=== PATIENT | male | born 1975 | race Caucasian/White ===

== ENCOUNTER 2017-11-24 08:26 | Emergency (ER) | payer BC, SELFPAY ==
[2017-11-24] MEDS ORDERED: Lidocaine 1% (PF) 30 ML VIAL ONE (09:49)
== END 2017-11-24 10:12 | disposition home or self-care (01) ==
LOC: ERS 08:26
DX: L02.411 Cutaneous abscess of right axilla (principal); B20 Human immunodeficiency virus [HIV] disease; Z87.891 Personal history of nicotine dependence
CPT/HCPCS: 10060; J2001

== ENCOUNTER 2017-11-28 21:00 | Inpatient (IN) | payer SELFPAY ==
[2017-11-28] MEDS ORDERED: Lidocaine 1% w/Epinephrine 1:100K 20 ML VIAL ONE (21:48)
[2017-11-28 21:59] LABS: #Basophils 0.1 thou/uL (0.0-0.2); #Eosinphils 0.2 thou/uL (0.0-0.7); #Lymphocytes 2.2 thou/uL (1.20-3.40); #Monocytes 0.6 thou/uL (0.11-0.59); #Neutrophils 6.7 thou/uL (1.40-6.50); %Basophils 0.6 % (0.0-1.0); %Eosinophils 1.7 % (0.0-10.0); %Lymphocytes 22.3 % (21.0-51.0); %Monocytes 6.3 % (0.0-10.0); %Neutrophils 69.1 % (42.0-75.0); Hemoglobin 12.8 g/dL (14.0-18.0); Mean Corpuscular HGB CONC 33.2 g/dL (32.0-36.0); Mean Corpuscular Hemoglobin 30.2 pg (27.0-31.0); Mean Corpuscular Volume 90.9 fL (78.0-98.0); Mean Platelet Volume 6.4 fL (7.4-10.4); Platelet Count 350 thou/uL (130-400); RBC Distribution Width 12.9 % (11.5-14.5); Red Blood Cell (RBC) Count 4.23 mill/uL (4.70-6.10); White Blood Cell (WBC) Count 9.7 thou/uL (4.8-10.8)
[2017-11-28 22:18] LABS: ALT (SGPT) 14 U/L (8-55); AST (SGOT) 14 U/L (5-34); Alkaline Phosphatase 57 U/L (40-150); Anion Gap 13 mmol/L (10-20); BUN (Urea Nitrogen) 20 mg/dL (8.9-20.6); Bilirubin, Total 0.5 mg/dL (0.2-1.2); Calc. Creatinine Clearance 0 mL/min (70-130); Calcium 9.6 mg/dL (7.8-10.44); Carbon Dioxide 22 mmol/L (22-29); Chloride 105 mmol/L (98-107); Estimated GFR-MDRD 66; Globulin 3.4 g/dL (2.4-3.5); Glucose 109 mg/dL (70-105); Potassium 3.5 mmol/L (3.5-5.1); Protein, Total 7.4 g/dL (6.0-8.3); Sodium 136 mmol/L (136-145)
[2017-11-29] MEDS ORDERED: Piperacillin/Tazobactam 4.5 GM VIAL ONE (00:19)
[2017-11-29] MEDS: Sodium Chloride 0.9% 1,000 ML IV SCH ×3 (01:19→13:06)
[2017-11-29 01:48] VITALS: BMI 34.2
[2017-11-29] MEDS ORDERED: traMADol HCl 50 MG TAB PO PRN (05:43)
[2017-11-29] MEDS ORDERED: Ondansetron HCl/PF 4 MG in Sodium Chloride 0.9% 50 ML IVPB PRN (05:43)
[2017-11-29] MEDS ORDERED: Prevnar 13-Val Conj/PF 0.5 ML SYRINGE IM ONE (09:00)
[2017-11-29] MEDS: Acetaminophen 325 MG TAB PO PRN ×2 (10:08→19:10)
[2017-11-29] MEDS ORDERED: Vancomycin HCl 1 GM in Premix Bag 1 BAG IVPB SCH (12:45)
[2017-11-29] MEDS ORDERED: Bisacodyl 5 MG TAB PO PRN (12:47)
--- NOTE | 2017-11-29 13:16 | HP ---
CHIEF COMPLAINT: Infection. PRIMARY CARE PROVIDER: None. HISTORY OF PRESENT ILLNESS: Mr. Townsend is a pleasant 42-year-old gentleman who was seen at [facility] on 11/29/2017. Six days ago, he shaved his axillae. Next day, he was okay. The following day, his axilla puffed up on both sides. He came to the emergency room and was prescribed Bactrim. He started taking Bactrim at home. Yesterday evening, he noticed that the swelling was worse. He checked his temperature and found that it was 101.3 degrees Fahrenheit. He therefore presented to the emergency room. He describes pain in both axillae, worse on the right side, sharp, 8-9/10 at its worst, nonradiating, worse with movement, improved with rest, no other associated features. I should note that during his previous emergency room visit, he had an abscess that drained in the le ft axilla. Last night, he had abscess drained from the right axilla. REVIEW OF SYSTEMS: All other systems reviewed and found to be negative. PAST MEDICAL HISTORY: HIV infection, he reports that his medications were changed approximately 2.5- 3 months ago. He also has a history of deep vein thrombosis. PAST SURGICAL HISTORY: Probable carotid thrombectomy with stent placement on the left side. ALLERGIES: No known drug allergies. CURRENT MEDICATIONS: Bactrim-DS 1 tablet 2 times a day and Genvoya 1 tablet daily. SOCIAL HISTORY: The patient reports occasional marijuana use. He denies alcohol use. He reports sm oking 1 pack of cigarettes in a week. FAMILY HISTORY: Colon cancer in his mother. PHYSICAL EXAMINATION: GENERAL: Mr. Townsend is awake and alert, not in acute distress. He is obese, with a BMI of 34.2. VITAL SIGNS: Blood pressure is 92/55, pulse 85, respiratory rate 20, and oxygen saturation 96% on ro om air. Temperature is 99.4 degrees Fahrenheit. EYES: No scleral icterus. No conjunctival pallor. ENT: Moist mucosal membranes, no oropharyngeal erythema or exudates. NECK: Supple, nontender, trachea is midline. RESPIRATORY: Accessory muscles of breathing are not active. Chest wall movements are symmetric bila terally. LUNGS: Clear to auscultation without wheeze, rhonchi or crepitations. CARDIOVASCULAR: S1 and S2 are heard, regular. Peripheral pulses palpable. No carotid bruit, no per icardial rub. ABDOMEN: Soft, nontender, bowel sounds heard, no hepatomegaly, no splenomegaly. NEUROLOGIC: Cranial nerves II-XII intact. Deep tendon reflexes are 2+. MUSCULOSKELETAL: Power is 5/5 in all 4 extremities. SKIN: He has a dressing over the right axilla. Left axilla has tenderness of the skin along with pa lpable masses. LYMPHATIC: Probable axillary lymphadenopathy. PSYCHIATRIC: Normal mood, normal affect, patient is oriented to person, place, and time. LABORATORY DATA: Mr. Townsend's labs and investigations were reviewed. He has normal white count, norm ocytic anemia with hemoglobin 12.8, normal platelet count, unremarkable comprehensive metabolic profi le and normal lactic acid level. ASSESSMENT AND PLAN: Mr. Townsend is a pleasant 42-year-old gentleman who was seen at [facility] on 11/29/2017. His problem list includes: 1. Cellulitis: Mr. Townsend is presenting with cellulitis of both axillae along with abscess formation as well, status post incision and drainage. He will be admitted to the hospital for further managem ent. He has failed outpatient antibiotic therapy. We will start him on empiric antibiotics, vancomy jim and Zosyn and follow cultures. We will also consult ID Service for opinion and help with managem ent. 2. Human immunodeficiency virus infection: He has a history of HIV infection. We will continue his home medications. 3. Tobacco use: The patient has been counseled regarding tobacco cessation and marijuana cessation. Many thanks for allowing me to participate in your patient's care. Please feel free to contact me wi th any questions or concerns. LEVEL OF RISK: Moderate. LEVEL OF COMPLEXITY: Moderate.
[2017-11-29] MEDS: Piperacillin/Tazobactam 4.5 GM in Sodium Chloride 0.9% 100 ML IVPB SCH ×2 (13:23→21:27)
[2017-11-29] MEDS: Vancomycin HCl 1.75 GM in Sodium Chloride 0.9% 500 ML IVPB SCH ×2 (13:31→23:47)
[2017-11-29 15:16] LABS: Hep C IgG Ab Non-Reactive (NonReactive)
--- NOTE | 2017-11-29 18:05 | CON ---
DATE OF CONSULTATION: 11/29/2017 CHIEF COMPLAINT: Mr. Townsend admitted with inflammatory process, right and left axillary regions. HISTORY OF PRESENT ILLNESS: A 42-year-old known to us from previous consultation with a history of l ongstanding HIV infection, currently on Genvoya for the past 2 months, history of prior deep venous t hrombosis and Staphylococcal bacteremia a few years ago. He also has a history of skin abscesses whi ch are presumably secondary to Staphylococcus aureus. The possibility of hidradenitis had been consi dered, but the clinical presentation would not very typical of it in July. The patient now has been admitted with an exacerbation or new development of the right and left axillary inflammatory process. The left one is more severe one. This was associated with fever and has failed oral Bactrim in the home setting. Max temperature was 101.3. He has some other areas of nodular inflammatory change in the more proximal aspect of the right and left arms. No headaches. No sore throat, odynophagia, or dysphagia. No visual symptoms or back pain. No abdominal pain. He has intermittent loose stools w hich is chronic. No genitourinary symptoms. No joint symptoms. No neurological symptoms. 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 Apparently had a deep vein thrombosis with stenting and thrombectomy of the lef t side of his neck. SOCIAL HISTORY: Chronic smoking. No IV drug use. 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 PAST MEDICAL HISTORY: Colon cancer, CVA and myocardial infarction. ALLERGIES: None. MEDICATIONS: Genvoya, Bactrim. PHYSICAL EXAMINATION: VITAL SIGNS: T-max 99.4, blood pressure 105/67, pulse 100, respirations 20, O2 saturation 97%. GENERAL: Appears in no acute distress. SKIN: Shows areas of inflammatory change in the right and left axilla. Those are sort of a pustular follicular inflammatory lesions, the one the left is more obvious abscess/furuncle type of lesion, w hich is packed after debridement in the emergency room. Patient has hyperpigmented spots in the prox imal aspect of upper extremities bilaterally, which probably represent previous inflammatory processe s. Those extend beyond the area of the axilla. He has a few other nodular lesions, particularly on the right side, not as intense as the current ones. No lymphadenopathy. HEENT: Ocular movements conjugate. Oral cavity normal. NECK: Supple. LUNGS: Symmetric clear breath sounds. HEART: S1, S2, regular rate. No S3, S4. ABDOMEN: Soft, not distended or tender. No ascites. No bladder distention. EXTREMITIES: No joint inflammatory activity. No edema. Pulses 1+ in dorsalis pedis. Plantar respo nses are flexure. NEUROLOGIC: Cognitive function appears to be intact. EXTREMITIES: Moves extremities equally. LABORATORY DATA: White cell count 9.7, hemoglobin 12.8, platelets 350, total lymphocyte count 2.2 an d chemistry was not remarkable except for glucose 109. His last HIV viral load was 600,000 in July t his year. His last CD4 cell count here was 196. ASSESSMENT: 1. Longstanding human immunodeficiency virus infection with erratic antiretroviral therapy due to pe rsonal social issues now with more steady adherence to treatment at least for the past 2 months. 2. Recurring episodes of skin and soft tissue infection with folliculitis and furuncle. Possibility of hidradenitis had been considered. We have not yet completely ruled out this possibility. At thi s point, we will continue Genvoya and Bactrim 3 times a week suppressive therapy until we have the cu rrent CD4 cell count. If it is above 200, discontinue Bactrim and continue Genvoya alone. The patie nt has his own supplies and should continue taking from them while in the hospital. Regarding his sk in and soft tissue infections, we will wait for the cultures. If revealed Staphylococcus aureus or M RSA, then continue treatment as such may need further I&D or not depending on progress. If other typ es of bacteria isolated then the possibility of hidradenitis would have to be considered more strongl y. Continue monitoring blood cultures to verify that he was not bacteremic. Check hepatitis C, RPR.
[2017-11-29 22:15] LABS: Syphilis Antibody INDETERMINATE (Nonreactive); Syphilis Titer Non-Reactive (Negative)
[2017-11-30] MEDS: Sodium Chloride 0.9% 1,000 ML IV SCH ×2 (03:45→13:13)
[2017-11-30 05:27] LABS: #Eosinphils 0.3 thou/uL (0.0-0.7); #Lymphocytes 1.3 thou/uL (1.20-3.40); #Monocytes 0.2 thou/uL (0.11-0.59); #Neutrophils 4.7 thou/uL (1.40-6.50); %Basophils 0.1 % (0.0-1.0); %Eosinophils 4.3 % (0.0-10.0); %Monocytes 3.5 % (0.0-10.0); Hemoglobin 11.5 g/dL (14.0-18.0); Mean Corpuscular HGB CONC 33.3 g/dL (32.0-36.0); Mean Corpuscular Volume 92.9 fL (78.0-98.0); Mean Platelet Volume 6.6 fL (7.4-10.4); Platelet Count 278 thou/uL (130-400); RBC Distribution Width 12.8 % (11.5-14.5); Red Blood Cell (RBC) Count 3.71 mill/uL (4.70-6.10); White Blood Cell (WBC) Count 6.6 thou/uL (4.8-10.8)
[2017-11-30 05:38] LABS: Anion Gap 10 mmol/L (10-20); BUN (Urea Nitrogen) 9 mg/dL (8.9-20.6); Calc. Creatinine Clearance 173 mL/min (70-130); Carbon Dioxide 19 mmol/L (22-29); Chloride 108 mmol/L (98-107); Estimated GFR-MDRD 86; Glucose 116 mg/dL (70-105); Potassium 3.8 mmol/L (3.5-5.1); Sodium 133 mmol/L (136-145)
[2017-11-30] MEDS: Piperacillin/Tazobactam 4.5 GM in Sodium Chloride 0.9% 100 ML IVPB SCH ×3 (05:40→20:22)
[2017-11-30] MEDS: Enoxaparin Sodium 40 MG/0.4 ML SYRINGE SC SCH (08:05)
[2017-11-30] MEDS: GENVOYA PO SCH (08:06)
[2017-11-30] MEDS ORDERED: hydrALAZINE 20 MG/ML VIAL SLOW IVP PRN (08:24)
[2017-11-30] MEDS ORDERED: Chloraseptic Spray 180 ml Bottle PO PRN (08:24)
[2017-11-30] MEDS ORDERED: Famotidine 20 MG TAB PO PRN (08:24)
[2017-11-30] MEDS ORDERED: Calcium Carbonate 500 MG ChewTAB PO PRN (08:24)
[2017-11-30] MEDS ORDERED: Milk Of Magnesia 30 ML UDCUP PO PRN (08:24)
[2017-11-30] MEDS ORDERED: Ondansetron ODT 4 MG TAB PO PRN (08:24)
[2017-11-30] MEDS ORDERED: Temazepam 15 MG CAP PO PRN (08:24)
[2017-11-30] MEDS ORDERED: Eucerin (Mineral Oil/Petrolatum,White) 30 gm Jar TOP PRN (08:24)
[2017-11-30] MEDS ORDERED: Artificial Tears 18 DROP/0.9 ML EA EYE PRN (08:24)
[2017-11-30] MEDS ORDERED: Loperamide HCl 2 MG CAP PO PRN (08:24)
[2017-11-30] MEDS ORDERED: Sodium Chloride 0.65% Nasal 44 ML BOT EA NARE PRN (08:24)
[2017-11-30] MEDS ORDERED: Loratadine 10 MG TAB PO PRN (08:24)
[2017-11-30] MEDS ORDERED: [UNRECOGNIZED DRUG - OTHER] PO SCH (09:00)
[2017-11-30] MEDS: Saccharomyces boulardii 250 MG CAP PO SCH (09:46)
[2017-11-30] MEDS: HYDROcodone/Acetaminophen 5/325 mg Tablet PO PRN ×3 (09:46→18:22)
[2017-11-30] MEDS: Diabetic Tussin 200 MG/10 ML UDCUP PO PRN ×2 (09:46→17:10)
[2017-11-30] MEDS: Vancomycin HCl 1.75 GM in Sodium Chloride 0.9% 500 ML IVPB SCH (13:14)
--- NOTE | 2017-11-30 13:39 | PDOC.PN ---
- Subjective Encounter Start Date: 11/30/17 Encounter Start Time: 07:45 Patient seen and examined. No overnight events pt has severe pain in both axilla, more on left - Objective MAR Reviewed: Yes Vital Signs & Weight: Vital Signs (12 hours) Temp Pulse Resp BP Pulse Ox 11/30/17 08:00 95 11/30/17 07:48 98.1 F 62 18 120/76 95 11/30/17 04:36 98.3 F 63 16 113/69 96 Weight Weight 266 lb 3 oz I&O: 11/29/17 11/30/17 12/01/17 06:59 06:59 06:59 Intake Total 711 3765.2 400 Balance 711 3765.2 400 Result Diagrams: 11/30/17 04:33 11/30/17 04:33 Phys Exam - Physical Examination Constitutional: NAD HEENT: PERRLA, moist MMs, sclera anicteric Neck: no JVD, supple Respiratory: no wheezing, no rales, no rhonchi Cardiovascular: RRR, no significant murmur, no rub Gastrointestinal: soft, non-tender, no distention, positive bowel sounds obesity+ Musculoskeletal: no edema, pulses present both axilla abscess with dressing Neurological: non-focal, normal sensation, moves all 4 limbs Psychiatric: normal affect, A&O x 3 Skin: no rash, normal turgor Dx/Plan (1) Axillary abscess Code(s): L02.419 - CUTANEOUS ABSCESS OF LIMB, UNSPECIFIED Status: Acute (2) Failure of outpatient treatment Code(s): Z78.9 - OTHER SPECIFIED HEALTH STATUS Status: Acute (3) HIV (human immunodeficiency virus infection) Status: Chronic (4) Obesity (BMI 30-39.9) Code(s): E66.9 - OBESITY, UNSPECIFIED Status: Chronic (5) Tobacco abuse Code(s): Z72.0 - TOBACCO USE Status: Chronic - Plan cont current plan of care, continue antibiotics * ID following * continue vancomycin and zosyn for now * follow on culture * increase morphin for pain and toradol for pain control * medication reviewed as below * symptomatic treatment * wound care. Review of Systems - Review of Systems ENT: negative: Ear Pain, Ear Discharge, Nose Pain, Nose Discharge, Nose Congestion, Mouth Pain, Mouth Swelling, Throat Pain, Throat Swelling, Other Respiratory: negative: Cough, Dry, Shortness of Breath, Hemoptysis, SOB with Excertion, Pleuritic Pain, Sputum, Wheezing Cardiovascular: negative: chest pain, palpitations, orthopnea, paroxysmal nocturnal dyspnea, edema, light headedness, other Gastrointestinal: negative: Nausea, Vomiting, Abdominal Pain, Diarrhea, Constipation, Melena, Hematochezia, Other Genitourinary: negative: Dysuria, Frequency, Incontinence, Hematuria, Retention , Other Musculoskeletal: Arm Pain. negative: Neck Pain, Shoulder Pain, Back Pain, Hand Pain, Leg Pain, Foot Pain, Other Skin: negative: Rash, Lesions, Yan, Bruising, Other - Medications/Allergies Allergies/Adverse Reactions: Allergies Allergy/AdvReac Type Severity Reaction Status Date / Time No Known Allergies Allergy Unverified 07/24/15 17:30 Medications: Current Medications Acetaminophen (Tylenol) 650 mg PO Q6H PRN PRN Reason: Pain Last Admin: 11/29/17 19:10 Dose: 650 mg Hydrocodone Bitart/Acetaminophen ([place] 5/325) 1 tab PO Q4H PRN PRN Reason: Moderate Pain (4-6) Last Admin: 11/30/17 09:46 Dose: 1 tab Artificial Tears (Tears Naturale) 0 drop EA EYE PRN PRN PRN Reason: Dry Eyes Bisacodyl (Dulcolax) 10 mg PO DAILYPRN PRN PRN Reason: Constipation Calcium Carbonate (Tums) 1,000 mg PO Q4H PRN PRN Reason: Heartburn or Indigestion Enoxaparin Sodium (Lovenox) 40 mg SC 0900 [place] Last Admin: 11/30/17 08:05 Dose: 40 mg Famotidine (Pepcid) 20 mg PO BIDPRN PRN PRN Reason: Heartburn or Indigestion Guaifenesin (Robitussin Sf) 200 mg PO Q4H PRN PRN Reason: Cough Last Admin: 11/30/17 09:46 Dose: 200 mg Hydralazine HCl (Apresoline) 10 mg SLOW IVP Q4H PRN PRN Reason: Systolic BP > 180 Ondansetron HCl 4 mg/ Sodium (Chloride) 52 mls @ 200 mls/hr IVPB Q6H PRN PRN Reason: Nausea Piperacillin Sod/Tazobactam (Sod 4.5 gm/ Sodium Chloride) 100 mls @ 200 mls/hr IVPB Q8HR [facility] Last Admin: 11/30/17 05:40 Dose: 100 mls Sodium Chloride (Normal Saline 0.9%) 1,000 mls @ 70 mls/hr IV .[id number] [facility] Last Admin: 11/30/17 13:13 Dose: 1,000 mls Vancomycin HCl 1.75 gm/ Sodium (Chloride) 500 mls @ 250 mls/hr IVPB 0100,1300 [facility] Last Admin: 11/30/17 13:14 Dose: 500 mls Loperamide HCl (Imodium) 2 mg PO PRN PRN PRN Reason: Diarrhea/Loose Stools Loratadine (Claritin) 10 mg PO DAILYPRN PRN PRN Reason: Sinus Symptoms Magnesium Hydroxide (Milk Of Magnesium) 30 ml PO DAILYPRN PRN PRN Reason: Constipation Mineral Oil/White Petrolatum (Eucerin Cream) 0 gm TOP BIDPRN PRN PRN Reason: Dry Skin Miscellaneous Medication (Pharmacy To Dose) 0 each IVPB ASDIR PRN PRN Reason: Pharmacy to Dose VANC; RENALLY Morphine Sulfate (Morphine) 2 mg SLOW IVP Q2H PRN PRN Reason: Severe Pain (7-10) Last Admin: 11/30/17 13:11 Dose: 2 mg Ondansetron HCl (Zofran Odt) 4 mg PO Q6H PRN PRN Reason: Nausea/Vomiting Patient's Home (Medication - Genvoya) 1 each PO DAILY [facility] Last Admin: 11/30/17 08:06 Dose: 1 each Phenol (Chloraseptic [place] 180 Ml Bot) 0 ml PO PRN PRN PRN Reason: Sore Throat Saccharomyces Boulardii (Florastor) 250 mg PO DAILY [facility] Last Admin: 11/30/17 09:46 Dose: 250 mg Sodium Chloride (Flush - Normal Saline) 10 ml IVF PRN PRN PRN Reason: Saline Flush Sodium Chloride ([place] Nasal [place] 0.65%) 0 ml EA NARE QIDPRN PRN PRN Reason: Nasal Congestion Temazepam (Restoril) 15 mg PO HSPRN PRN PRN Reason: Insomnia
[2017-11-30] MEDS: Ketorolac Tromethamine 30 MG/ML VIAL IVP PRN (20:22)
[2017-12-01 00:20] LABS: Vancomycin, Trough 12.1 ug/mL
[2017-12-01] MEDS: HYDROcodone/Acetaminophen 5/325 mg Tablet PO PRN ×3 (00:20→18:18)
[2017-12-01] MEDS: Vancomycin HCl 1.75 GM in Sodium Chloride 0.9% 500 ML IVPB SCH (00:21)
[2017-12-01] MEDS: Piperacillin/Tazobactam 4.5 GM in Sodium Chloride 0.9% 100 ML IVPB SCH ×3 (05:45→23:57)
[2017-12-01] MEDS: Ketorolac Tromethamine 30 MG/ML VIAL IVP PRN ×2 (05:45→14:50)
[2017-12-01] MEDS: GENVOYA PO SCH (09:48)
[2017-12-01] MEDS: Enoxaparin Sodium 40 MG/0.4 ML SYRINGE SC SCH (09:49)
[2017-12-01] MEDS: Saccharomyces boulardii 250 MG CAP PO SCH (09:49)
[2017-12-01] MEDS: Vancomycin HCl 1.5 GM in Sodium Chloride 0.9% 250 ML 300 ML IVPB SCH ×2 (10:17→18:19)
--- NOTE | 2017-12-01 11:06 | PDOC.PN ---
- Subjective Encounter Start Date: 12/01/17 Encounter Start Time: 09:30 pt has no fever, but he still has more pain on left axilla - Objective MAR Reviewed: Yes Vital Signs & Weight: Vital Signs (12 hours) Temp Pulse Resp BP Pulse Ox 12/01/17 08:00 97 12/01/17 07:29 97.7 F 63 20 108/55 L 97 Weight Weight 266 lb 3 oz I&O: 11/30/17 12/01/17 12/02/17 06:59 06:59 06:59 Intake Total 3765.2 1999 Balance 3765.2 1999 Result Diagrams: 11/30/17 04:33 11/30/17 04:33 Phys Exam - Physical Examination Constitutional: NAD HEENT: PERRLA, moist MMs, sclera anicteric Neck: no JVD, supple Respiratory: no wheezing, no rales, no rhonchi Cardiovascular: RRR, no significant murmur, no rub Gastrointestinal: soft, non-tender, no distention, positive bowel sounds Musculoskeletal: no edema, pulses present both axilla has indurated lesion Neurological: non-focal, normal sensation, moves all 4 limbs Psychiatric: normal affect, A&O x 3 Skin: no rash, normal turgor Dx/Plan (1) Axillary abscess Code(s): L02.419 - CUTANEOUS ABSCESS OF LIMB, UNSPECIFIED Status: Acute (2) Failure of outpatient treatment Code(s): Z78.9 - OTHER SPECIFIED HEALTH STATUS Status: Acute (3) HIV (human immunodeficiency virus infection) Status: Chronic (4) Obesity (BMI 30-39.9) Code(s): E66.9 - OBESITY, UNSPECIFIED Status: Chronic (5) Tobacco abuse Code(s): Z72.0 - TOBACCO USE Status: Chronic - Plan cont current plan of care, continue antibiotics * currently on vancomycin and zosyn * wound care * pain control with narcotics * will ask dr haile if any need for general surgery for more I & D * medication reviewed as below * symptomatic treatment. Review of Systems - Review of Systems Eyes: negative: Pain, Vision Change, Conjunctivae Inflammation, Eyelid Inflammation, Redness, Other ENT: negative: Ear Pain, Ear Discharge, Nose Pain, Nose Discharge, Nose Congestion, Mouth Pain, Mouth Swelling, Throat Pain, Throat Swelling, Other Respiratory: negative: Cough, Dry, Shortness of Breath, Hemoptysis, SOB with Excertion, Pleuritic Pain, Sputum, Wheezing Cardiovascular: negative: chest pain, palpitations, orthopnea, paroxysmal nocturnal dyspnea, edema, light headedness, other Gastrointestinal: negative: Nausea, Vomiting, Abdominal Pain, Diarrhea, Constipation, Melena, Hematochezia, Other Genitourinary: negative: Dysuria, Frequency, Incontinence, Hematuria, Retention , Other Musculoskeletal: Arm Pain. negative: Neck Pain, Shoulder Pain, Back Pain, Hand Pain, Leg Pain, Foot Pain, Other - Medications/Allergies Allergies/Adverse Reactions: Allergies Allergy/AdvReac Type Severity Reaction Status Date / Time No Known Allergies Allergy Unverified 07/24/15 17:30 Medications: Current Medications Acetaminophen (Tylenol) 650 mg PO Q6H PRN PRN Reason: Pain Last Admin: 11/29/17 19:10 Dose: 650 mg Hydrocodone Bitart/Acetaminophen ([place] 5/325) 1 tab PO Q4H PRN PRN Reason: Moderate Pain (4-6) Last Admin: 12/01/17 09:49 Dose: 1 tab Artificial Tears (Tears Naturale) 0 drop EA EYE PRN PRN PRN Reason: Dry Eyes Bisacodyl (Dulcolax) 10 mg PO DAILYPRN PRN PRN Reason: Constipation Calcium Carbonate (Tums) 1,000 mg PO Q4H PRN PRN Reason: Heartburn or Indigestion Enoxaparin Sodium (Lovenox) 40 mg SC 0900 [place] Last Admin: 12/01/17 09:49 Dose: 40 mg Famotidine (Pepcid) 20 mg PO BIDPRN PRN PRN Reason: Heartburn or Indigestion Guaifenesin (Robitussin Sf) 200 mg PO Q4H PRN PRN Reason: Cough Last Admin: 11/30/17 17:10 Dose: 200 mg Hydralazine HCl (Apresoline) 10 mg SLOW IVP Q4H PRN PRN Reason: Systolic BP > 180 Ondansetron HCl 4 mg/ Sodium (Chloride) 52 mls @ 200 mls/hr IVPB Q6H PRN PRN Reason: Nausea Piperacillin Sod/Tazobactam (Sod 4.5 gm/ Sodium Chloride) 100 mls @ 200 mls/hr IVPB Q8HR [place] Last Admin: 12/01/17 05:45 Dose: 100 mls Sodium Chloride (Normal Saline 0.9%) 1,000 mls @ 70 mls/hr IV .[id number] [facility] Last Admin: 11/30/17 13:13 Dose: 1,000 mls Vancomycin HCl 1.5 gm/ Sodium (Chloride) 300 mls @ 200 mls/hr IVPB 0100,0900, 1700 [facility] Last Admin: 12/01/17 10:17 Dose: 300 mls Ketorolac Tromethamine (Toradol) 15 mg IVP Q6H PRN PRN Reason: Pain Stop: 12/05/17 13:40 Last Admin: 12/01/17 05:45 Dose: 15 mg Loperamide HCl (Imodium) 2 mg PO PRN PRN PRN Reason: Diarrhea/Loose Stools Loratadine (Claritin) 10 mg PO DAILYPRN PRN PRN Reason: Sinus Symptoms Magnesium Hydroxide (Milk Of Magnesium) 30 ml PO DAILYPRN PRN PRN Reason: Constipation Mineral Oil/White Petrolatum (Eucerin Cream) 0 gm TOP BIDPRN PRN PRN Reason: Dry Skin Miscellaneous Medication (Pharmacy To Dose) 0 each IVPB ASDIR PRN PRN Reason: Pharmacy to Dose VANC; RENALLY Morphine Sulfate (Morphine) 4 mg SLOW IVP Q2H PRN PRN Reason: Severe Pain (7-10) Last Admin: 11/30/17 17:08 Dose: 4 mg Ondansetron HCl (Zofran Odt) 4 mg PO Q6H PRN PRN Reason: Nausea/Vomiting Patient's Home (Medication - Genvoya) 1 each PO DAILY [facility] Last Admin: 12/01/17 09:48 Dose: 1 each Phenol (Chloraseptic [place] 180 Ml Bot) 0 ml PO PRN PRN PRN Reason: Sore Throat Saccharomyces Boulardii (Florastor) 250 mg PO DAILY [facility] Last Admin: 12/01/17 09:49 Dose: 250 mg Sodium Chloride (Flush - Normal Saline) 10 ml IVF PRN PRN PRN Reason: Saline Flush Sodium Chloride ([place] Nasal [place] 0.65%) 0 ml EA NARE QIDPRN PRN PRN Reason: Nasal Congestion Temazepam (Restoril) 15 mg PO HSPRN PRN PRN Reason: Insomnia
[2017-12-01] MEDS: Sodium Chloride 0.9% 1,000 ML IV SCH (14:54)
[2017-12-01 15:17] LABS: LOG10 HIV-1 RNA 1.845 (.)
[2017-12-01] MEDS: Diabetic Tussin 200 MG/10 ML UDCUP PO PRN (18:18)
[2017-12-02] MEDS: Vancomycin HCl 1.5 GM in Sodium Chloride 0.9% 250 ML 300 ML IVPB SCH (01:11)
[2017-12-02] MEDS: Piperacillin/Tazobactam 4.5 GM in Sodium Chloride 0.9% 100 ML IVPB SCH (05:29)
[2017-12-02] MEDS ORDERED: Levofloxacin 500 mg/D5W 100 ml Premix Bag ONE (06:30)
--- NOTE | 2017-12-02 08:10 | PRG ---
DATE OF SERVICE: 12/01/2017 Mr. Townsend is still with quite a bit of pain in the left axillary region, not as much on the right. No respiratory symptoms, no abdominal pain or diarrhea. PHYSICAL EXAMINATION: VITAL SIGNS: T-max 98.2, blood pressure 140/76, pulse 67, respirations 18, O2 sat 94-97%. SKIN: Left-sided abscess still quite prominent with packing and still quite a bit of erythema surrounding these areas. Multiple areas of nodular inflammatory change in the left axillary region. The ones on the right are still there, but not as inflamed. LUNGS: Lungs are clear. HEART: S1, S2, regular rate. ABDOMEN: Soft, not distended or tender. No ascites. No bladder distention. NEURO: Nonfocal. LABORATORY DATA: White cell count 6.6, hemoglobin 11.5, platelets 278. Sodium 133, creatinine 0.97. HIV viral load was 70. The CD4 cell count IS still pending. The culture showed MRSA and E. coli. The E. coli has a broad susceptibility, except augmentin and piperacillin and Bactrim. It is susceptible to quinolones. ASSESSMENT AND DISCUSSION: Longstanding HIV infection with erratic adherence to antiretroviral therapy due to social issues, now with improvement in the appearance with development of inflammatory process in the axillary region. This still could represent hidradenitis associated versus inflammatory process. We will switch him to oral Cipro plus doxycycline and discontinue IV antimicrobial therapy. He may need a repeat I&D of the site. He may benefit from the Humira if hidradenitis is confirmed, which is not yet at this point in time, but I would have to wait for his CD4 cell count to improve before starting Humira since it is immunosuppressive medication. MTDD
[2017-12-02] MEDS: Saccharomyces boulardii 250 MG CAP PO SCH (08:22)
[2017-12-02] MEDS: Enoxaparin Sodium 40 MG/0.4 ML SYRINGE SC SCH (08:22)
[2017-12-02] MEDS: GENVOYA PO SCH (08:23)
[2017-12-02] MEDS: Ketorolac Tromethamine 30 MG/ML VIAL IVP PRN (08:26)
[2017-12-02] MEDS: Doxycycline 100 MG CAP PO SCH ×2 (09:49→19:58)
--- NOTE | 2017-12-02 11:47 | PDOC.PN ---
- Subjective Encounter Start Date: 12/02/17 Encounter Start Time: 09:00 Patient seen and examined. No new complaints. No overnight events - Objective MAR Reviewed: Yes Vital Signs & Weight: Vital Signs (12 hours) Temp Pulse Resp BP Pulse Ox 12/02/17 08:00 97 12/02/17 07:40 97.8 F 67 18 147/93 H 97 Weight Weight 266 lb 3 oz I&O: 12/01/17 12/02/17 12/03/17 06:59 06:59 06:59 Intake Total 1999 1005 Output Total 900 Balance 1999 105 Result Diagrams: 11/30/17 04:33 11/30/17 04:33 Phys Exam - Physical Examination Constitutional: NAD HEENT: PERRLA, moist MMs, sclera anicteric Neck: no JVD, supple Respiratory: no wheezing, no rales, no rhonchi Cardiovascular: RRR, no significant murmur, no rub Gastrointestinal: soft, non-tender, no distention, positive bowel sounds Musculoskeletal: no edema, pulses present axillary hideredenitis, multiple abscess Neurological: non-focal, normal sensation, moves all 4 limbs Psychiatric: normal affect, A&O x 3 Skin: no rash, normal turgor Dx/Plan (1) Axillary abscess Code(s): L02.419 - CUTANEOUS ABSCESS OF LIMB, UNSPECIFIED Status: Acute (2) Failure of outpatient treatment Code(s): Z78.9 - OTHER SPECIFIED HEALTH STATUS Status: Acute (3) HIV (human immunodeficiency virus infection) Status: Chronic (4) Obesity (BMI 30-39.9) Code(s): E66.9 - OBESITY, UNSPECIFIED Status: Chronic (5) Tobacco abuse Code(s): Z72.0 - TOBACCO USE Status: Chronic - Plan cont current plan of care, continue antibiotics * antibiotics changed to oral cipro and doxy * wound care * medication reviewed as below * symptomatic treatment * will consult general surgery for evaluation for need for I & D * await cd4 count result * pain controlled. Review of Systems - Review of Systems ENT: negative: Ear Pain, Ear Discharge, Nose Pain, Nose Discharge, Nose Congestion, Mouth Pain, Mouth Swelling, Throat Pain, Throat Swelling, Other Respiratory: negative: Cough, Dry, Shortness of Breath, Hemoptysis, SOB with Excertion, Pleuritic Pain, Sputum, Wheezing Cardiovascular: negative: chest pain, palpitations, orthopnea, paroxysmal nocturnal dyspnea, edema, light headedness, other Gastrointestinal: negative: Nausea, Vomiting, Abdominal Pain, Diarrhea, Constipation, Melena, Hematochezia, Other Genitourinary: negative: Dysuria, Frequency, Incontinence, Hematuria, Retention , Other Musculoskeletal: negative: Neck Pain, Shoulder Pain, Arm Pain, Back Pain, Hand Pain, Leg Pain, Foot Pain, Other Skin: negative: Rash, Lesions, Yan, Bruising, Other - Medications/Allergies Allergies/Adverse Reactions: Allergies Allergy/AdvReac Type Severity Reaction Status Date / Time No Known Allergies Allergy Unverified 07/24/15 17:30 Medications: Current Medications Acetaminophen (Tylenol) 650 mg PO Q6H PRN PRN Reason: Pain Last Admin: 11/29/17 19:10 Dose: 650 mg Hydrocodone Bitart/Acetaminophen ([place] 5/325) 1 tab PO Q4H PRN PRN Reason: Moderate Pain (4-6) Last Admin: 12/01/17 18:18 Dose: 1 tab Artificial Tears (Tears Naturale) 0 drop EA EYE PRN PRN PRN Reason: Dry Eyes Bisacodyl (Dulcolax) 10 mg PO DAILYPRN PRN PRN Reason: Constipation Calcium Carbonate (Tums) 1,000 mg PO Q4H PRN PRN Reason: Heartburn or Indigestion Ciprofloxacin (Cipro) 500 mg PO BID@0600,2000 [facility] Doxycycline Hyclate (Vibramycin) 100 mg PO BID [facility] Last Admin: 12/02/17 09:49 Dose: 100 mg Enoxaparin Sodium (Lovenox) 40 mg SC 0900 [facility] Last Admin: 12/02/17 08:22 Dose: 40 mg Famotidine (Pepcid) 20 mg PO BIDPRN PRN PRN Reason: Heartburn or Indigestion Guaifenesin (Robitussin Sf) 200 mg PO Q4H PRN PRN Reason: Cough Last Admin: 12/01/17 18:18 Dose: 200 mg Hydralazine HCl (Apresoline) 10 mg SLOW IVP Q4H PRN PRN Reason: Systolic BP > 180 Ondansetron HCl 4 mg/ Sodium (Chloride) 52 mls @ 200 mls/hr IVPB Q6H PRN PRN Reason: Nausea Sodium Chloride (Normal Saline 0.9%) 1,000 mls @ 70 mls/hr IV .[id number] [facility] Last Admin: 12/02/17 00:00 Dose: 1,000 mls Ketorolac Tromethamine (Toradol) 15 mg IVP Q6H PRN PRN Reason: Pain Stop: 12/05/17 13:40 Last Admin: 12/02/17 08:26 Dose: 15 mg Loperamide HCl (Imodium) 2 mg PO PRN PRN PRN Reason: Diarrhea/Loose Stools Loratadine (Claritin) 10 mg PO DAILYPRN PRN PRN Reason: Sinus Symptoms Magnesium Hydroxide (Milk Of Magnesium) 30 ml PO DAILYPRN PRN PRN Reason: Constipation Mineral Oil/White Petrolatum (Eucerin Cream) 0 gm TOP BIDPRN PRN PRN Reason: Dry Skin Morphine Sulfate (Morphine) 4 mg SLOW IVP Q2H PRN PRN Reason: Severe Pain (7-10) Last Admin: 12/02/17 11:20 Dose: 4 mg Ondansetron HCl (Zofran Odt) 4 mg PO Q6H PRN PRN Reason: Nausea/Vomiting Patient's Home (Medication - Genvoya) 1 each PO DAILY [facility] Last Admin: 12/02/17 08:23 Dose: 1 each Phenol (Chloraseptic [place] 180 Ml Bot) 0 ml PO PRN PRN PRN Reason: Sore Throat Saccharomyces Boulardii (Florastor) 250 mg PO DAILY [facility] Last Admin: 12/02/17 08:22 Dose: 250 mg Sodium Chloride (Flush - Normal Saline) 10 ml IVF PRN PRN PRN Reason: Saline Flush Sodium Chloride ([place] Nasal [place] 0.65%) 0 ml EA NARE QIDPRN PRN PRN Reason: Nasal Congestion Temazepam (Restoril) 15 mg PO HSPRN PRN PRN Reason: Insomnia
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
[2017-12-02] MEDS: HYDROcodone/Acetaminophen 5/325 mg Tablet PO PRN ×2 (14:54→19:58)
[2017-12-02] MEDS: Sodium Chloride 0.9% 1,000 ML IV SCH ×3 (15:04→20:03)
[2017-12-02] MEDS: Cipro 250 MG TAB PO SCH (21:07)
[2017-12-03 00:47] LABS: Vancomycin, Trough 5.6 ug/mL
[2017-12-03] MEDS: Cipro 250 MG TAB PO SCH ×2 (05:33→20:02)
[2017-12-03] MEDS: Sodium Chloride 0.9% 1,000 ML IV SCH (05:37)
[2017-12-03] MEDS: Doxycycline 100 MG CAP PO SCH ×2 (07:59→20:02)
[2017-12-03] MEDS: GENVOYA PO SCH (07:59)
[2017-12-03] MEDS: Saccharomyces boulardii 250 MG CAP PO SCH (07:59)
[2017-12-03] MEDS: Enoxaparin Sodium 40 MG/0.4 ML SYRINGE SC SCH (08:02)
[2017-12-03] MEDS ORDERED: PROPOFOL 200 MG/20 ML VIAL ONE (08:29)
[2017-12-03] MEDS ORDERED: Lidocaine 1% PF 5 ML VIAL ONE ×2 (08:29)
[2017-12-03] MEDS ORDERED: Ondansetron HCl/PF 4 MG/2 ML Vial ONE (08:29)
--- NOTE | 2017-12-03 10:56 | PDOC.PN ---
- Subjective Encounter Start Date: 12/03/17 Encounter Start Time: 08:15 Patient seen and examined. No new complaints. No overnight events - Objective MAR Reviewed: Yes Vital Signs & Weight: Vital Signs (12 hours) Temp Pulse Resp BP Pulse Ox 12/03/17 08:00 99 12/03/17 07:41 97.7 F 69 18 140/88 99 Weight Weight 266 lb 3 oz I&O: 12/02/17 12/03/17 12/04/17 06:59 06:59 06:59 Intake Total 1005 1774 Output Total 900 Balance 105 1774 Result Diagrams: 11/30/17 04:33 11/30/17 04:33 Phys Exam - Physical Examination Constitutional: NAD HEENT: PERRLA, moist MMs, sclera anicteric Neck: no JVD, supple Respiratory: no wheezing, no rales, no rhonchi Cardiovascular: RRR, no significant murmur, no rub Gastrointestinal: soft, non-tender, no distention, positive bowel sounds Musculoskeletal: no edema, pulses present axillary abscess with dressing Neurological: non-focal, normal sensation, moves all 4 limbs Psychiatric: normal affect, A&O x 3 Skin: no rash, normal turgor Dx/Plan (1) Axillary abscess Code(s): L02.419 - CUTANEOUS ABSCESS OF LIMB, UNSPECIFIED Status: Acute (2) Failure of outpatient treatment Code(s): Z78.9 - OTHER SPECIFIED HEALTH STATUS Status: Acute (3) HIV (human immunodeficiency virus infection) Status: Chronic (4) Obesity (BMI 30-39.9) Code(s): E66.9 - OBESITY, UNSPECIFIED Status: Chronic (5) Tobacco abuse Code(s): Z72.0 - TOBACCO USE Status: Chronic - Plan cont current plan of care, continue antibiotics * continue cipro and doxy * today surgical I & D * wound care * medication reviewed as below * symptomatic treatment. * DC IVF * pain controlled Review of Systems - Review of Systems ENT: negative: Ear Pain, Ear Discharge, Nose Pain, Nose Discharge, Nose Congestion, Mouth Pain, Mouth Swelling, Throat Pain, Throat Swelling, Other Respiratory: negative: Cough, Dry, Shortness of Breath, Hemoptysis, SOB with Excertion, Pleuritic Pain, Sputum, Wheezing Cardiovascular: negative: chest pain, palpitations, orthopnea, paroxysmal nocturnal dyspnea, edema, light headedness, other Gastrointestinal: negative: Nausea, Vomiting, Abdominal Pain, Diarrhea, Constipation, Melena, Hematochezia, Other Genitourinary: negative: Dysuria, Frequency, Incontinence, Hematuria, Retention , Other Musculoskeletal: negative: Neck Pain, Shoulder Pain, Arm Pain, Back Pain, Hand Pain, Leg Pain, Foot Pain, Other - Medications/Allergies Allergies/Adverse Reactions: Allergies Allergy/AdvReac Type Severity Reaction Status Date / Time No Known Allergies Allergy Unverified 07/24/15 17:30 Medications: Current Medications Acetaminophen (Tylenol) 650 mg PO Q6H PRN PRN Reason: Pain Last Admin: 11/29/17 19:10 Dose: 650 mg Hydrocodone Bitart/Acetaminophen ([place] 5/325) 1 tab PO Q4H PRN PRN Reason: Moderate Pain (4-6) Last Admin: 12/02/17 19:58 Dose: 1 tab Artificial Tears (Tears Naturale) 0 drop EA EYE PRN PRN PRN Reason: Dry Eyes Bisacodyl (Dulcolax) 10 mg PO DAILYPRN PRN PRN Reason: Constipation Calcium Carbonate (Tums) 1,000 mg PO Q4H PRN PRN Reason: Heartburn or Indigestion Ciprofloxacin (Cipro) 500 mg PO BID@0600,2000 [facility] Last Admin: 12/03/17 05:33 Dose: 500 mg Doxycycline Hyclate (Vibramycin) 100 mg PO BID [facility] Last Admin: 12/03/17 07:59 Dose: 100 mg Enoxaparin Sodium (Lovenox) 40 mg SC 0900 [facility] Last Admin: 12/03/17 08:02 Dose: Not Given Famotidine (Pepcid) 20 mg PO BIDPRN PRN PRN Reason: Heartburn or Indigestion Guaifenesin (Robitussin Sf) 200 mg PO Q4H PRN PRN Reason: Cough Last Admin: 12/01/17 18:18 Dose: 200 mg Hydralazine HCl (Apresoline) 10 mg SLOW IVP Q4H PRN PRN Reason: Systolic BP > 180 Ondansetron HCl 4 mg/ Sodium (Chloride) 52 mls @ 200 mls/hr IVPB Q6H PRN PRN Reason: Nausea Sodium Chloride (Normal Saline 0.9%) 1,000 mls @ 70 mls/hr IV .[id number] [facility] Last Admin: 12/03/17 05:37 Dose: 1,000 mls Ketorolac Tromethamine (Toradol) 15 mg IVP Q6H PRN PRN Reason: Pain Stop: 12/05/17 13:40 Last Admin: 12/02/17 08:26 Dose: 15 mg Loperamide HCl (Imodium) 2 mg PO PRN PRN PRN Reason: Diarrhea/Loose Stools Loratadine (Claritin) 10 mg PO DAILYPRN PRN PRN Reason: Sinus Symptoms Magnesium Hydroxide (Milk Of Magnesium) 30 ml PO DAILYPRN PRN PRN Reason: Constipation Mineral Oil/White Petrolatum (Eucerin Cream) 0 gm TOP BIDPRN PRN PRN Reason: Dry Skin Morphine Sulfate (Morphine) 4 mg SLOW IVP Q2H PRN PRN Reason: Severe Pain (7-10) Last Admin: 12/02/17 21:07 Dose: 4 mg Ondansetron HCl (Zofran Odt) 4 mg PO Q6H PRN PRN Reason: Nausea/Vomiting Patient's Home (Medication - Genvoya) 1 each PO DAILY [facility] Last Admin: 12/03/17 07:59 Dose: 1 each Phenol (Chloraseptic [place] 180 Ml Bot) 0 ml PO PRN PRN PRN Reason: Sore Throat Saccharomyces Boulardii (Florastor) 250 mg PO DAILY [facility] Last Admin: 12/03/17 07:59 Dose: 250 mg Sodium Chloride (Flush - Normal Saline) 10 ml IVF PRN PRN PRN Reason: Saline Flush Sodium Chloride ([place] Nasal [place] 0.65%) 0 ml EA NARE QIDPRN PRN PRN Reason: Nasal Congestion Temazepam (Restoril) 15 mg PO HSPRN PRN PRN Reason: Insomnia
[2017-12-03] MEDS ORDERED: Bacitracin Zinc Ointment 30 gm TUBE ONE (13:36)
[2017-12-03] MEDS ORDERED: Fentanyl 100 MCG/2 ML VIAL ONE ×2 (13:57→14:56)
[2017-12-03] MEDS ORDERED: Ibuprofen 600 MG TAB PO PRN (14:30)
[2017-12-03] MEDS ORDERED: Acetaminophen 500 MG TAB PO PRN (14:30)
[2017-12-03] MEDS ORDERED: traMADol HCl 50 MG TAB PO PRN ×2 (14:30)
[2017-12-03] MEDS ORDERED: Promethazine HCl 25 MG/ML VIAL SLOW IVP PRN (14:53)
[2017-12-03] MEDS ORDERED: Promethazine HCl 25 MG/ML VIAL IM PRN (14:53)
[2017-12-03] MEDS ORDERED: Ondansetron HCl/PF 4 MG/2 ML Vial IVP PRN (14:53)
[2017-12-03] MEDS ORDERED: Bupivacaine HCl 0.5%/Epinephrine 1:200,000/PF 30 ml Vial ONE (16:06)
[2017-12-03] MEDS ORDERED: Lidocaine 2% PF Inj 2 ML VIAL ONE (16:06)
--- NOTE | 2017-12-03 18:17 | PRG ---
DATE OF SERVICE: 12/03/2017 SUBJECTIVE: Mr. Townsend is status post further I&D of the left axilla. He has moderate pain. No resp iratory symptoms. No abdominal pain, diarrhea, no genitourinary symptoms. PHYSICAL EXAMINATION: VITAL SIGNS: T-max is 98.4 and his other vital signs are normal except for slight elevation in systo lic blood pressure. The left axilla has dressing, seems like the cavity is packed where the abnormal tissue was excised. LUNGS: Clear. HEART: S1, S2, regular rate. ABDOMEN: Soft, not distended. EXTREMITIES: Moves extremities with some limitations from the inflammatory process of left axilla. NEUROLOGIC: His cognitive function appears to be intact. LABORATORY DATA: The last white cell count is from two days ago and CD4 cell count not back yet. We will probably be ready in days. ASSESSMENT AND DISCUSSION: Human immunodeficiency virus infection with erratic adherence to antiretr oviral therapy due to personal issues and now those findings in the axillary area with concern for hi dradenitis. The patient had a surgical debridement, I believe pathology probably has been submitted and I will define the diagnosis. Continue his antiretroviral therapy and antimicrobials. Eventually , transition to oral antimicrobials for discharge planning.
[2017-12-03] MEDS: Ketorolac Tromethamine 30 MG/ML VIAL IVP PRN (20:32)
[2017-12-04] MEDS: Cipro 250 MG TAB PO SCH (05:18)
[2017-12-04] MEDS: Saccharomyces boulardii 250 MG CAP PO SCH (08:01)
[2017-12-04] MEDS: Doxycycline 100 MG CAP PO SCH (08:01)
[2017-12-04] MEDS: Enoxaparin Sodium 40 MG/0.4 ML SYRINGE SC SCH (08:01)
[2017-12-04] MEDS: GENVOYA PO SCH (08:02)
[2017-12-04] MEDS ORDERED: Polyethylene Glycol 3350 17 GM Packet PO SCH (09:00)
--- NOTE | 2017-12-04 09:07 | OP ---
DATE OF PROCEDURE: 12/03/2017 PREOPERATIVE DIAGNOSES: Hidradenitis suppurativa, bilateral axilla with active infection, multiple a bscesses left axilla, HIV positive. POSTOPERATIVE DIAGNOSES: Hidradenitis suppurativa, bilateral axilla with active infection, multiple abscesses left axilla, HIV positive. PROCEDURE: Incision and drainage of multiple abscesses, 5 in number, left axilla. SURGEON: Brandon Michaud M.D. ANESTHESIA: General. Local 0.5% Marcaine with epinephrine, 30 mL, mixed with , 10 mL total vol ume mixture used. Wound is packed open to heal by secondary intention. PROCEDURE IN DETAIL: Patient taken to the operating room where under general anesthesia left axilla was prepared with Betadine and draped in routine fashion. Local anesthetic infiltrated into the skin and subcutaneous tissue about the operative site, 5 abscesses overlying hidradenitis suppurativa, le ft axilla incised and drained. Wound was cauterized, gaining hemostasis. Wounds irrigated. Wound p acked open. Dry gauze dressing. Patient tolerated the procedure well.
--- NOTE | 2017-12-04 10:22 | PDOC.PN ---
- Subjective Encounter Start Date: 12/04/17 Encounter Start Time: 08:40 Patient seen and examined. No new complaints. No overnight events - Objective MAR Reviewed: Yes Vital Signs & Weight: Vital Signs (12 hours) Temp Pulse Resp BP Pulse Ox 12/04/17 08:00 95 12/04/17 07:44 97.6 F 65 18 148/91 H 95 12/04/17 07:01 97.3 F L 63 18 145/95 H 96 12/04/17 00:00 97.4 F L 58 L 18 130/78 94 L Weight Admit Weight 266 lb 3 oz Weight 266 lb 3 oz I&O: 12/03/17 12/04/17 12/05/17 06:59 06:59 06:59 Intake Total 1774 2000 450 Output Total 1550 600 Balance 1774 450 -150 Result Diagrams: 11/30/17 04:33 11/30/17 04:33 Phys Exam - Physical Examination Constitutional: NAD HEENT: PERRLA, moist MMs, sclera anicteric Neck: no JVD, supple Respiratory: no wheezing, no rales, no rhonchi Cardiovascular: RRR, no significant murmur, no rub Gastrointestinal: soft, non-tender, no distention, positive bowel sounds Musculoskeletal: no edema, pulses present Neurological: non-focal, normal sensation, moves all 4 limbs Psychiatric: normal affect, A&O x 3 Skin: no rash, normal turgor Dx/Plan (1) Axillary abscess Code(s): L02.419 - CUTANEOUS ABSCESS OF LIMB, UNSPECIFIED Status: Acute (2) Failure of outpatient treatment Code(s): Z78.9 - OTHER SPECIFIED HEALTH STATUS Status: Acute (3) HIV (human immunodeficiency virus infection) Status: Chronic (4) Obesity (BMI 30-39.9) Code(s): E66.9 - OBESITY, UNSPECIFIED Status: Chronic (5) Tobacco abuse Code(s): Z72.0 - TOBACCO USE Status: Chronic - Plan cont current plan of care, continue antibiotics * pt needs wound care teaching * outpt follow up * medication reviewed as below * symptomatic treatment. Review of Systems - Review of Systems Eyes: negative: Pain, Vision Change, Conjunctivae Inflammation, Eyelid Inflammation, Redness, Other ENT: negative: Ear Pain, Ear Discharge, Nose Pain, Nose Discharge, Nose Congestion, Mouth Pain, Mouth Swelling, Throat Pain, Throat Swelling, Other Respiratory: negative: Cough, Dry, Shortness of Breath, Hemoptysis, SOB with Excertion, Pleuritic Pain, Sputum, Wheezing Cardiovascular: negative: chest pain, palpitations, orthopnea, paroxysmal nocturnal dyspnea, edema, light headedness, other Gastrointestinal: negative: Nausea, Vomiting, Abdominal Pain, Diarrhea, Constipation, Melena, Hematochezia, Other Genitourinary: negative: Dysuria, Frequency, Incontinence, Hematuria, Retention , Other Musculoskeletal: negative: Neck Pain, Shoulder Pain, Arm Pain, Back Pain, Hand Pain, Leg Pain, Foot Pain, Other Skin: negative: Rash, Lesions, Yan, Bruising, Other - Medications/Allergies Allergies/Adverse Reactions: Allergies Allergy/AdvReac Type Severity Reaction Status Date / Time No Known Allergies Allergy Unverified 07/24/15 17:30 Medications: Current Medications Acetaminophen (Tylenol) 650 mg PO Q6H PRN PRN Reason: Pain Last Admin: 11/29/17 19:10 Dose: 650 mg Acetaminophen (Tylenol) 1,000 mg PO Q6H PRN PRN Reason: Mild Pain (1-3) Artificial Tears (Tears Naturale) 0 drop EA EYE PRN PRN PRN Reason: Dry Eyes Bisacodyl (Dulcolax) 10 mg PO DAILYPRN PRN PRN Reason: Constipation Calcium Carbonate (Tums) 1,000 mg PO Q4H PRN PRN Reason: Heartburn or Indigestion Ciprofloxacin (Cipro) 500 mg PO BID@0600,2000 [facility] Last Admin: 12/04/17 05:18 Dose: 500 mg Doxycycline Hyclate (Vibramycin) 100 mg PO BID [facility] Last Admin: 12/04/17 08:01 Dose: 100 mg Enoxaparin Sodium (Lovenox) 40 mg SC 0900 [facility] Last Admin: 12/04/17 08:01 Dose: 40 mg Famotidine (Pepcid) 20 mg PO BIDPRN PRN PRN Reason: Heartburn or Indigestion Guaifenesin (Robitussin Sf) 200 mg PO Q4H PRN PRN Reason: Cough Last Admin: 12/01/17 18:18 Dose: 200 mg Hydralazine HCl (Apresoline) 10 mg SLOW IVP Q4H PRN PRN Reason: Systolic BP > 180 Ondansetron HCl 4 mg/ Sodium (Chloride) 52 mls @ 200 mls/hr IVPB Q6H PRN PRN Reason: Nausea Ibuprofen (Motrin) 600 mg PO Q6H PRN PRN Reason: Pain Last Admin: 12/04/17 05:19 Dose: 600 mg Ketorolac Tromethamine (Toradol) 15 mg IVP Q6H PRN PRN Reason: Pain Stop: 12/05/17 13:40 Last Admin: 12/03/17 20:32 Dose: 15 mg Loperamide HCl (Imodium) 2 mg PO PRN PRN PRN Reason: Diarrhea/Loose Stools Loratadine (Claritin) 10 mg PO DAILYPRN PRN PRN Reason: Sinus Symptoms Magnesium Hydroxide (Milk Of Magnesium) 30 ml PO DAILYPRN PRN PRN Reason: Constipation Mineral Oil/White Petrolatum (Eucerin Cream) 0 gm TOP BIDPRN PRN PRN Reason: Dry Skin Morphine Sulfate (Morphine) 4 mg SLOW IVP Q2H PRN PRN Reason: Severe Pain (7-10) Last Admin: 12/03/17 20:34 Dose: 4 mg Ondansetron HCl (Zofran Odt) 4 mg PO Q6H PRN PRN Reason: Nausea/Vomiting Patient's Home (Medication - Genvoya) 1 each PO DAILY [facility] Last Admin: 12/04/17 08:02 Dose: 1 each Phenol (Chloraseptic [place] 180 Ml Bot) 0 ml PO PRN PRN PRN Reason: Sore Throat Polyethylene Glycol (Miralax) 17 gm PO DAILY [facility] Last Admin: 12/04/17 08:03 Dose: Not Given Saccharomyces Boulardii (Florastor) 250 mg PO DAILY [facility] Last Admin: 12/04/17 08:01 Dose: 250 mg Sodium Chloride (Flush - Normal Saline) 10 ml IVF PRN PRN PRN Reason: Saline Flush Sodium Chloride ([place] Nasal [place] 0.65%) 0 ml EA NARE QIDPRN PRN PRN Reason: Nasal Congestion Temazepam (Restoril) 15 mg PO HSPRN PRN PRN Reason: Insomnia Tramadol HCl (Ultram) 50 mg PO Q6H PRN PRN Reason: Moderate Pain (4-6) Tramadol HCl (Ultram) 100 mg PO Q6H PRN PRN Reason: Severe Pain (7-10)
--- NOTE | 2017-12-04 10:59 | DIS ---
DATE OF ADMISSION: 11/28/2017 DATE OF DISCHARGE: 12/04/2017 PRIMARY CARE PHYSICIAN: [facility] call admission. DISCHARGE DISPOSITION: Home. PRIMARY DISCHARGE DIAGNOSIS: Bilateral axillary abscess, more on the left side status post incision and drainage, failure of outpatient therapy. SECONDARY DISCHARGE DIAGNOSES: Human immunodeficiency virus, obesity with BMI 34, tobacco abuse diso rder. PRIMARY PROCEDURE AND OPERATION: Incision and drainage of axillary abscess performed by Dr. Michaud. RADIOLOGICAL INVESTIGATION: None. SIGNIFICANT LABORATORY DATA: WBC 6.6, hemoglobin 11.5, platelet 278. Sodium 133, potassium 3.8, BUN 9, creatinine 0.97, calcium 8.0. LFT normal. DISCHARGE MEDICATIONS: Antiretroviral therapy as per home dosage, ciprofloxacin 500 mg p.o. b.i.d. f or 15 days, doxycycline 100 mg twice daily for 15 days, Florastor 250 mg p.o. daily. CONTRAINDICATIONS: None. CODE STATUS: FULL CODE. INPATIENT CONSULTANTS: Dr. Weiss was following while in hospital. Dr. Michaud was consulted for I&D. TEST RESULTS PENDING ON DISCHARGE: Pathology report from abscess. DISCHARGE PLAN: Post hospital, the patient is instructed to follow up with primary care physician, Sharyn Weiss and Dr. Michaud as instructed. HOSPITAL COURSE: A 42-year-old male who has underlying HIV who came to hospital on 11/28/2017. The patient was admitted by Dr. Mcclure, please see his H&P for further details. The patient had bilateral axillary abscess, which was suspicious for hidradenitis suppurativa. While in hospital, he was neil mera with empiric antibiotic therapy. Dr. Weiss was consulted and he was also suspecting hidradenitis . Wound care team was consulted while in hospital. The patient required I&D by Dr. Michaud during th is admission. The patient was able to manage wound care by himself. He was given wound care teachin g. Antibiotic changed to oral Cipro and doxycycline based on culture and sensitivity result. The patient is seen and examined at bedside today. Please see my progress note from today for furthe r detail. The patient is medically stable for discharge today.
[2017-12-04 11:46] VITALS: BP 147/89; TEMP 98
[2017-12-06 11:02] LABS: %CD3 (Mature T-Cells) 78.6; %CD4 (Helper/Inducer) 20.8 %
[2017-12-06 11:03] LABS: %CD8 (Cytotoxic/Suppressor) 56.4; CD4/CD8 Ratio 0.37
[2017-12-07 16:05] LABS: WBC Count 9.4
== END 2017-12-04 11:45 | disposition home or self-care (01) | DRG 603 ==
LOC: ERS 21:00 → T4-B 23:52
PROVIDERS: ADMIT Hospitalist; ATTEND Hospitalist
PROC: 0X950ZX Drainage of Left Axilla, Open Approach, Diagnostic (ICD-10-PCS; principal; 2017-12-03)
DX: L02.412 Cutaneous abscess of left axilla (principal); B20 Human immunodeficiency virus [HIV] disease; L73.2 Hidradenitis suppurativa; F17.210 Nicotine dependence, cigarettes, uncomplicated; E66.9 Obesity, unspecified; Z68.34 Body mass index [BMI] 34.0-34.9, adult; Z86.718 Personal history of other venous thrombosis and embolism; Z80.0 Family history of malignant neoplasm of digestive organs
CPT/HCPCS: 10061; 36415; 36416; 80048; 80053; 80202; 83605; 85025; 85048; 86359; 86360; 86593; 86780; 86803; 87040; 87070; 87077; 87186; 87205; 87536; 90471; 90670; 96365; 96366; 96375; G0009; J0670; J1650; J1885; J1956; J2001; J2270; J2405; J2543; J2704; J3010; J3370; J3490; J7050